=== PATIENT | male | born 1995 | race African-American/Black ===

== ENCOUNTER 2025-07-30 13:17 | Emergency (ER) | payer MEDICAID, OTHER ==
[~2025-07-30] VITALS: Ht 188 cm; Wt 91.0 kg
[2025-07-30 13:29] VITALS: BP 128/84; PULSE 100; RESP 16; TEMP 36.9; O2SAT 99
[2025-07-30 17:42] LABS: BASOPHILS % 0.6 % (0.0-2.0); EOSINOPHILS % 1.9 % (0.0-5.0); HEMATOCRIT. 42.1 % (42.0-52.0); HEMOGLOBIN. 13.0 g/dL (14.0-18.0); LYMPHOCYTES % 33.6 % (20.0-50.0); MEAN PLATELET VOLUME 8.8 fl (7.4-10.4); MONOCYTES % 12.2 % (2.0-8.0); NEUTROPHILS % 51.7 % (40.0-76.0); PLATELET 294 x1000/uL (130-400); RED BLOOD CELL COUNT 5.59 mill/uL (4.7-6.1); RED CELL DISTRIBUTION WIDTH 15.4 % (11.6-14.6)
[2025-07-30] MEDS ORDERED: IRON15TA3 MT (17:56)
[2025-07-30] MEDS ORDERED: ACET-2708 MT (17:57)
== END 2025-07-30 17:58 | disposition home or self-care (01) ==
LOC: ER 13:17
DX: M79.604 Pain in right leg (principal)
CPT/HCPCS: 36415; 73590; 73620; 85025; 99284